=== PATIENT | male | born 1990 | race Two or more races ===

== ENCOUNTER 2023-03-31 19:08 | Emergency (ER) | payer MEDICAID ==
[~2023-03-31] VITALS: Ht 180.3 cm; Wt 81.8 kg
[2023-03-31] MEDS ORDERED: LIDOCAINE 1% 10 ML VIAL PERC ONE (19:45)
[2023-03-31 21:50] VITALS: BP 136/87
== END 2023-03-31 19:24 | disposition home or self-care (01) ==
LOC: EMS 19:09
DX: S62.605A Fracture of unspecified phalanx of left ring finger, initial encounter for closed fracture (principal); S63.255A Unspecified dislocation of left ring finger, initial encounter; F17.210 Nicotine dependence, cigarettes, uncomplicated; Z98.890 Other specified postprocedural states; X58.XXXA Exposure to other specified factors, initial encounter; Y93.89 Activity, other specified; Y92.89 Other specified places as the place of occurrence of the external cause; Y99.8 Other external cause status
CPT/HCPCS: 99284; 73130; 73140; 29130; J3490